=== PATIENT | female | born 1970 | race Caucasian/White ===

== ENCOUNTER → 2017-05-19 | Outpatient (REF) | payer BC | LOC: M SFHCWAGY 14:09 | DX: Z12.4 Encounter for screening for malignant neoplasm of cervix (principal) | CPT/HCPCS: G0123 ==

== ENCOUNTER → 2017-05-19 | Outpatient (CLI) | payer BC | LOC: M WHC 13:40 | DX: Z12.31 Encounter for screening mammogram for malignant neoplasm of breast (principal) | CPT/HCPCS: 77067 ==

== ENCOUNTER → 2017-12-13 | Outpatient (REF) | payer BC ==
[2017-12-13 15:58] LABS: FOLLICLE STIMULATING HORMONE 98.1 mIU/mL
== END ==
LOC: M SFHCWAGY 13:48
DX: R61 Generalized hyperhidrosis (principal); Z78.0 Asymptomatic menopausal state; N95.1 Menopausal and female climacteric states; R63.5 Abnormal weight gain
CPT/HCPCS: 83001

== ENCOUNTER → 2020-02-27 | Outpatient (CLI) | payer BC ==
--- NOTE | 2020-02-27 14:46 | REPMRS ---
Patient History The patient states she had a clinical breast exam in February 2020.No known family history of cancer. Taking hormonal contraceptives for 3 years 5 months. 3D TOMOSYNTHESIS WAS PERFORMED. [facility] lifetime risk for [facility] cancer is 7.8%. Volpara breast density b. Digital Woman Screen Mammo: February 27, 2020 - Exam #: [id number] Bilateral CC and MLO view(s) were taken. Technologist: Tayler Askew, Technologist Prior study comparison: May 19, 2017, digital woman screen mammo performed at [facility]. January 01, 2016, digital woman screen mammo performed at [facility]. FINDINGS: There are scattered fibroglandular densities. There has been no change in the appearance of the mammogram from the prior studies. There is a mild amount of residual fibroglandular tissue which is fairly symmetric. There is no interval development of dominant mass, architectural distortion, or clustered microcalcification suggestive of malignancy. Assessment: BI-RADS/ACR category 1 mammogram. Negative Mammogram. Recommendation Routine screening mammogram in 1 year (for women over age 40). This mammogram was interpreted with the aid of an FDA-approved computer-aided dectection system. Electronically Signed By: Samy Arce MD 02/27/20 [id number]
== END ==
LOC: M WHC 10:59
PROVIDERS: ATTEND Nurse Practitioner Women's Health
DX: Z12.31 Encounter for screening mammogram for malignant neoplasm of breast (principal); N64.89 Other specified disorders of breast

== ENCOUNTER → 2020-02-27 | Outpatient (REF) | payer BC | LOC: M SFHCWAGY 13:04 | PROVIDERS: ATTEND Nurse Practitioner Women's Health | DX: Z12.4 Encounter for screening for malignant neoplasm of cervix (principal); Z01.419 Encounter for gynecological examination (general) (routine) without abnormal findings ==

== ENCOUNTER → 2021-08-16 | Outpatient (CLI) | payer BC | LOC: M WHC 14:37 | PROVIDERS: ATTEND Obstetrics & Gynecology | DX: Z12.31 Encounter for screening mammogram for malignant neoplasm of breast (principal) ==

== ENCOUNTER → 2022-11-08 | Outpatient (CLI) | payer BC | LOC: M WHC 10:16 | PROVIDERS: ATTEND Obstetrics & Gynecology | DX: Z12.31 Encounter for screening mammogram for malignant neoplasm of breast (principal) ==

== ENCOUNTER → 2023-10-24 | Outpatient (CLI) | payer BC | LOC: M WHC 08:39 | PROVIDERS: ATTEND Obstetrics & Gynecology | DX: M81.0 Age-related osteoporosis without current pathological fracture (principal) ==

== ENCOUNTER → 2023-11-21 | Outpatient (CLI) | payer BC | LOC: M WHC 09:24 | PROVIDERS: ATTEND Obstetrics & Gynecology | DX: Z12.31 Encounter for screening mammogram for malignant neoplasm of breast (principal) ==

== ENCOUNTER → 2025-03-04 | Outpatient (CLI) | payer BC | LOC: M WHC 11:00 | PROVIDERS: ATTEND Internal Medicine | DX: Z12.31 Encounter for screening mammogram for malignant neoplasm of breast (principal) ==